=== PATIENT | female | born 2000 | race Asian ===

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

== ENCOUNTER 2022-11-06 13:56 | Emergency (ER) | payer OTHER, SELFPAY ==
[2022-11-06 13:58] VITALS: BP 134/93; PULSE 118; RESP 16; TEMP 37.1; O2SAT 100; BMI 17.9
--- NOTE | 2022-11-06 14:08 | EKG12_ITS ---
Test Reason : DIZZINESS Blood Pressure : / mmHG Vent. Rate : 110 BPM Atrial Rate : 110 BPM P-R Int : 180 ms QRS Dur : 084 ms QT Int : 310 ms P-R-T Axes : 085 087 077 degrees QTc Int : 419 ms Sinus tachycardia Possible Left atrial enlargement Borderline ECG Confirmed by DOMI THOMPSON ([id number]), deputy editor in chief DANIELA EDUARDO ([id number]) on 11/11/2022 7:44:45 AM Referred By: TL Confirmed By:DOMI THOMPSON
--- NOTE | 2022-11-06 14:09 | EX.ED.DYSGE1 ---
HPI History of Present Illness Chief Complaint: Dizziness Informant: patient Narrative Narrative: Referred in here for a wellness clinic for fast heart rate. Patient states released from her dorm from isolation for 5 days due to COVID. She was diagnosed for the first time however had symptoms 2 other times. She had weakness and fatigue and reported sneezing for 1 day. Denies cough denies vomiting or diarrhea. Denies urinary symptoms. She is on Concerta for the past year and states she has always had a high heart rate. Heart rate was 120s at the wellness clinic. She denies any shortness of breath or any exertional dyspnea. She denies any syncopal episodes. She reports there is decrease in smell with decreased appetite however she has been tolerating oral fluids. Denies any current bloody stools. Prior similar symptoms: Yes PFSH PFSH Medical History Bipolar disorder Generalized anxiety disorder Panic disorder PTSD (post-traumatic stress disorder) Social anxiety disorder Home Medications norethindrone acetate 1 mg-ethinyl estradiol 20 mcg tablet 1 ea PO DAILY 09/18/20 [History Last Taken Unknown] Ziprasidone Hcl [Geodon] 40 mg PO BID 10/03/20 [History Last Taken Unknown] mirtazapine 30 mg tablet (Remeron) 30 mg PO DAILY 12/14/20 [History Last Taken Unknown] buspirone 10 mg tablet 10 mg PO TID 12/29/20 [History Last Taken Unknown] lamotrigine 25 mg tablet (Lamictal) 50 mg PO QHS 02/27/21 [History Last Taken Unknown] Allergy/AdvReac Type Severity Reaction Status Date / Time No Known Allergies Allergy Verified 11/06/22 13:59 Family History Grandmother Diabetes Social History housing: other Smoking Status: Never smoker ROS ROS ED Constitutional Constitutional ED: Denies chills, fever(s) or sweats Eyes Eyes: Denies change in vision ENT ENT ED: Denies dysphagia or sore throat Cardiovascular Cardiovascular: Denies chest pain, leg edema, palpitations or racing heartbeat Respiratory/Chest Respiratory/Chest: Denies cough, dyspnea or dyspnea on exertion Gastrointestinal Gastrointestinal: Denies abdominal pain, diarrhea, nausea or vomiting Genitourinary Genitourinary ED: Denies dysuria, hematuria or urinary frequency Musculoskeletal Musculoskeletal: Denies back pain, extremity pain or neck pain Integumentary Denies rash or wounds Neurologic Neurologic: Denies headache(s), paresthesias or weakness EXAM Physical Exam Const Vital Signs: 11/06/22 13:58 Temperature 98.8 F Temperature Source Temporal Pulse Rate 118 H Respiratory Rate 16 Blood Pressure 134/93 H Blood Pressure Mean 106 Pulse Ox 100 Oxygen Delivery Method Room Air Positive well nourished and well developed General Appearance ED: well developed and NAD HEENT Reports moist mucous membranes normocephalic and atraumatic Eyes PERRL, EOMs intact bilaterally and conjunctivae normal General Eye ED: Yes normal appearance of both eyes Neck no lymphadenopathy and supple General: Negative for tenderness Chest Wall Chest: Negative for tenderness Resp normal respiratory effort and normal air movement Effort and Inspection: symmetric chest movement; Negative for respiratory distress Cardio regular rhythm and no murmurs Rate: tachycardic Peripheral Pulses: pulses 2+ throughout GI normal to inspection, nondistended, normoactive bowel sounds and non-tender Palpation: Negative for guarding or rebound tenderness present Back/Spine no CVA tenderness and no thoracic nor lumbar tenderness Extremity normal to inspection General Extremety ED: Negative for edema or tenderness General Extremity: Negative for edema Neuro oriented x3 and no sensory deficits noted Sensorium / Orientation: awake and alert Skin no rashes or lesions noted and no wounds MDM MDM MDM Narrative Medical decision making narrative: Interventions / MDM: Differential diagnosis: Dysrhythmia, sinus tachycardia Diagnosis considered but do not suspect: PE, however denies any dyspnea or exertional dyspnea pulse ox 100% on room air. My EKG interpretation: Sinus rate of 110, no ST or T wave changes. Imaging independently reviewed and interpreted by myself: N/A External documents reviewed: N/A Test considered but not ordered:N/A ED course: Patient tachycardic on arrival. Sinus rhythm confirmed by EKG. Patient with no dyspnea no exertional dyspnea pulse ox 100 % on room air, lower suspicion for PE. She reports persistent tachycardia at home she is on Concerta likely adding to this. No syncopal episodes no focal deficits. She is tolerating oral fluids. Patient reassured with outpatient follow-up. Return precautions were discussed with the patient. All questions were answered. Re-evaluation: stable Disposition discussed with patient/family/significant other: Patient Case discussed with consulting clinician: N/A Discharge Plan Triage Chief Complaint: Dizziness Other Complaint: Palpitations ED Provider: Ashwin Malloy Dx/Rx/DC Orders Clinical Impression: Sinus tachycardia, Post covid-19 condition, unspecified Instructions: Understanding Tachycardia Prescriptions: No Action norethindrone ac-eth estradiol 1 EACH tablet 1 ea PO DAILY Ziprasidone Hcl [Geodon] 60 MG capsule 40 mg PO BID mirtazapine [Remeron] 30 mg tablet 30 mg PO DAILY buspirone 10 mg tablet 10 mg PO TID Label Comments: Take 1 Tablet By Oral Route 2 time(s) per day lamotrigine [Lamictal] 25 mg Tablet 50 mg PO QHS Rx Instructions: increase to 100mg qhs in one week Primary Care Provider: Care Physician,No Primary Referrals: [facility] Doctor,Out of [Non-Staff] - Activity Restrictions/Additional Instructions: EKG sinus rhythm. Continue oral fluids for hydration. Monitor symptoms if worsening especially with exertional dyspnea return for reevaluation otherwise follow-up with your doctors. Disposition Disposition: Home, Self Care
== END 2022-11-06 14:44 | disposition home or self-care (01) ==
PROVIDERS: Emergency Provider Emergency Medicine; Visit Provider Emergency Medicine
DX: R00.0 Tachycardia, unspecified (principal); U09.9 Post COVID-19 condition, unspecified
CPT/HCPCS: 93005; 99282

== ENCOUNTER 2022-11-11 16:44 | Emergency (ER) | payer OTHER, SELFPAY ==
[2022-11-11 16:45] VITALS: BP 124/95; PULSE 122; RESP 18; TEMP 37; O2SAT 98
--- NOTE | 2022-11-11 18:00 | EKG12_ITS ---
Test Reason : CP Blood Pressure : / mmHG Vent. Rate : 118 BPM Atrial Rate : 118 BPM P-R Int : 172 ms QRS Dur : 078 ms QT Int : 312 ms P-R-T Axes : 086 081 076 degrees QTc Int : 437 ms Sinus tachycardia Otherwise normal ECG Confirmed by JUVENTINO DOMINGUEZ, EARLE ([id number]), digital editor DANIELA EDUARDO ([id number]) on 11/17/2022 9:51:24 AM Referred By: LIZZ Confirmed By:EALRE JAUREGUI MD
[2022-11-11 18:23] VITALS: BMI 16.8
--- NOTE | 2022-11-11 18:43 | EKG12_ITS ---
Test Reason : CP REPEAT Blood Pressure : / mmHG Vent. Rate : 105 BPM Atrial Rate : 105 BPM P-R Int : 172 ms QRS Dur : 086 ms QT Int : 328 ms P-R-T Axes : 078 074 075 degrees QTc Int : 433 ms Sinus tachycardia Otherwise normal ECG Confirmed by EARLE JAUREGUI MD ([id number]), assignment editor DANIELA EDUARDO ([id number]) on 11/17/2022 9:51:52 AM Referred By: LIZZ Confirmed By:EARLE JAUREGUI MD
--- NOTE | 2022-11-11 18:44 | ED.VIS.CHEST ---
HPI History of Present Illness Chief Complaint: Chest Pain Informant: patient Narrative Narrative: Patient presents with palpitations and some dyspnea. Patient states that she has no history of heart disease but her heart rate is always in the 120s. She states every time she goes to her primary doctor her heart is in the 120s but she is asymptomatic. Patient did have COVID on the seventh of this month. She had sneezing body aches and decreased energy with that but those symptoms seem to get better. She was not having breathing problems. Now for the past week or week and a half she notes that when she walks around or gets active her heart rate races more than it normally does and she feels more tired and a little bit short of breath. She is not coughing. No abdominal pain. No muscle aches. No sputum. No hemoptysis. No leg pain or swelling. Patient is also on control. She also had a trip to [place] in September and a trip to [facility] in June. There is no personal or family history of DVT or PE though. PFSH [facility] Medical History Bipolar disorder Generalized anxiety disorder Panic disorder PTSD (post-traumatic stress disorder) Social anxiety disorder Home Medications norethindrone acetate 1 mg-ethinyl estradiol 20 mcg tablet 1 ea PO DAILY 09/18/20 [History Last Taken Unknown] Ziprasidone Hcl [Geodon] 40 mg PO BID 10/03/20 [History Last Taken Unknown] mirtazapine 30 mg tablet (Remeron) 30 mg PO DAILY 12/14/20 [History Last Taken Unknown] buspirone 10 mg tablet 10 mg PO TID 12/29/20 [History Last Taken Unknown] lamotrigine 25 mg tablet (Lamictal) 50 mg PO QHS 02/27/21 [History Last Taken Unknown] Allergy/AdvReac Type Severity Reaction Status Date / Time No Known Allergies Allergy Verified 11/11/22 16:46 Family History Grandmother Diabetes Social History housing: other Smoking Status: Never smoker ROS ROS ED Constitutional Constitutional ED: Denies chills or fever(s) Eyes Eyes: Denies blurry vision or change in vision ENT ENT ED: Denies rhinorrhea or sore throat Cardiovascular Cardiovascular: Reports as per HPI, palpitations and racing heartbeat Respiratory/Chest Respiratory/Chest: Reports dyspnea; Denies cough Gastrointestinal Gastrointestinal: Denies nausea or vomiting Musculoskeletal Musculoskeletal: Denies back pain, myalgias or neck pain Integumentary Denies rash Neurologic Neurologic: Denies headache(s) Psychiatric Psychiatric: Reports anxiety Endocrine Endocrinology: Denies polydipsia or polyuria Hematologic/Lymphatic Hematologic/Lymphatic: Denies easy bleeding or easy bruising Allergic/Immunologic Allergic/Immunologic ED: Denies urticaria EXAM Physical Exam Narrative Exam Narrative: CONSTITUTIONAL: Patient is nontoxic in appearance. The patient looks comfortable. Work of breathing looks normal. I could not initially see her because she needed to have a drink of water before I could speak with her. She is better now that she had water. HEENT: No notable trauma. Mucous membranes still moist. No sinus tenderness. No indication of pain with swallowing. EYES: No conjunctival injection. No proptosis. NECK:No JVD. No stridor. CARDIOVASCULAR: Mildly tachycardic rate at about 105?110. Regular rhythm. No notable murmur. No JVD. RESPIRATORY: No respiratory distress. Breathing is unlabored. No wheezes. No rhonchi. No rales. No pain with a deep breath. No chest wall tenderness. GASTROINTESTINAL: Not distended. Bowel sounds are normal. No tenderness. No guarding. No rebound. No palpable mass. No bruit is heard. GENITOURINARY: No tenderness over the bladder. No CVA tenderness. MUSCULOSKELETAL: Atraumatic. No peripheral edema. No cord. No tenderness along the deep venous system. No asymmetry. No distended veins. NEUROLOGICAL: Patient is alert and appropriate. No focal deficit noted. SKIN: No noted rashes. No diaphoresis. PSYCHIATRIC: Patient is calm. Mood is appropriate. Const Vital Signs: 11/11/22 16:45 11/11/22 19:00 11/11/22 20:00 Temperature 98.6 F Temperature Source Temporal Pulse Rate 122 H Respiratory Rate 18 14 Blood Pressure 124/95 H 116/87 H Blood Pressure Mean 104 96 Pulse Ox 98 100 Oxygen Delivery Method Room Air Room Air Room Air MDM MDM MDM Narrative Medical decision making narrative: My independent interpretation the patient's single view AP chest x-ray shows no acute disease. Patient CBC is normal Patient's electrolytes show no marked abnormalities Troponin is unmeasurable D-dimer was elevated. With elevated D-dimers and her risk factors, we did do CTA of the chest. This came back negative. No PE or dissection. I think patient is appropriate for follow-up. Her heart rate is 104 while I am in the room. She states it is always fast. I will refer her to cardiology as she requested. Her primary physician wants her to get in also. We discussed reasons to return. I do not see any indication for antibiotics or other therapy at this time. Her symptoms might be related to recent COVID. Lab Data Attestation: I reviewed the patient's lab results. Labs: Laboratory Results - last 24 hr 11/11/22 11/11/22 11/11/22 18:56 18:56 18:56 WBC 9.5 RBC 5.14 Hgb 14.4 Hct 44.2 MCV 86.0 MCH 28.0 MCHC 32.6 RDW Std Deviation 40.6 RDW Coeff of Jack 13.0 Plt Count 346 MPV 9.8 Immature Gran % (Auto) 0.300 Neut % (Auto) 62.5 Lymph % (Auto) 30.0 Eagle % (Auto) 4.7 Eos % (Auto) 1.9 Baso % (Auto) 0.6 Absolute Neuts (auto) 6.0 Absolute Lymphs (auto) 2.86 Nucleated RBC % 0 D-Dimer Quant (PE/DVT) 1.36 H* Sodium 138 Potassium 3.5 Chloride 108 H Carbon Dioxide 25.0 Anion Gap 5 BUN 11 Creatinine 0.63 Estim Creat Clear Calc 103.02 Est GFR (MDRD) Af Amer 155 Est GFR (MDRD) Non-Af 128 BUN/Creatinine Ratio 17.6 Glucose 81 Calcium 9.5 Troponin I High Sens < 3 L Serum , Qual 11/11/22 18:56 WBC RBC Hgb Hct MCV MCH MCHC RDW Std Deviation RDW Coeff of Jack Plt Count MPV Immature Gran % (Auto) Neut % (Auto) Lymph % (Auto) Eagle % (Auto) Eos % (Auto) Baso % (Auto) Absolute Neuts (auto) Absolute Lymphs (auto) Nucleated RBC % D-Dimer Quant (PE/DVT) Sodium Potassium Chloride Carbon Dioxide Anion Gap BUN Creatinine Estim Creat Clear Calc Est GFR (MDRD) Af Amer Est GFR (MDRD) Non-Af BUN/Creatinine Ratio Glucose Calcium Troponin I High Sens Serum , Qual NEGATIVE Radiography Diagnostic Testing: Clinical Impression(s) from Imaging Studies Chest X-Ray 11/11/22 19:00 IMPRESSION: No acute cardiopulmonary disease. Electronically Signed: Mack Powell DO at 19:14 EDT Reading Location ID and State: [address] [place] [address] Tel [phone], Service support , Chest CTA 11/11/22 19:35 IMPRESSION: Normal CTA chest examination, without a demonstrated pulmonary embolism or arterial dissection. AIDOC was utilized to assist in identifying pertinent positive findings in this case. Electronically Signed: Mack Powell at 20:33 EDT Reading Location ID and State: [address] [place] [address] Tel [phone], Service support , EKG Initial EKG: Comments: My independent interpretation the patient's EKG done for palpitations shows sinus rhythm with tachycardic rate at 105. No ectopy is noted. No acute ST elevation or depression. No preexcitation. ID interval, QRS duration and QTc are normal. Discharge Plan Triage Chief Complaint: Chest Pain ED Provider: Juan Luis Ayala Dx/Rx/DC Orders Clinical Impression: Heart palpitations, Sinus tachycardia Instructions: ED Palpitations Prescriptions: No Action norethindrone ac-eth estradiol 1 EACH tablet 1 ea PO DAILY Ziprasidone Hcl [Geodon] 60 MG capsule 40 mg PO BID mirtazapine [Remeron] 30 mg tablet 30 mg PO DAILY buspirone 10 mg tablet 10 mg PO TID Label Comments: Take 1 Tablet By Oral Route 2 time(s) per day lamotrigine [Lamictal] 25 mg Tablet 50 mg PO QHS Rx Instructions: increase to 100mg qhs in one week Primary Care Provider: Care Physician,No Primary Referrals: Randy Schwarz MD [Med Staff - Active Staff] - As soon as possible Care Physician,No Primary [Primary Care Provider] - Activity Restrictions/Additional Instructions: Follow-up with your primary physician Disposition Disposition: Home, Self Care
--- NOTE | 2022-11-11 19:00 | RAD_ITS ---
STUDY: X-RAY CHEST REASON FOR EXAM: Female, 22 years old. Intermittent chest pain for several days. TECHNIQUE: Single AP portable view of the chest. COMPARISON: None. FINDINGS: The lungs are clear and expanded. There is no demonstrated pleural abnormality. Normal size heart. Normal mediastinum and yael. Normal visualized pulmonary arteries. Normal visualized aortic arch and descending thoracic aorta. Normal visualized thoracic spine. Normal visualized ribs, clavicles, and shoulders. There is no demonstrated abnormality of the visualized soft tissue structures of the upper abdomen. RAD/Chest 1 View (Portable) IMPRESSION: No acute cardiopulmonary disease. Electronically Signed: Mack Powell DO at 19:14 EDT ,
[2022-11-11 19:11] LABS: Absolute Lymphocyte Count 2.86 X10^3/uL (0.83-4.51); Basophil# 0.06 X10^3/uL; Basophil% 0.6 % (0-1); Eosinophil# 0.18 X10^3/uL; Eosinophils% 1.9 % (0-5); Hematocrit 44.2 % (37-47); Hemoglobin 14.4 g/dL (12.0-15.0); Lymphocyte # 2.86 X10^3/ul (0.83-4.51); Mean Corp Hgb Conc 32.6 g/dL (32-36); Mean Platelet Vol. 9.8 fl (6.2-12.0); Monocyte# 0.45 X10^3/uL; Monocyte% 4.7 % (0-10); NRBC Flagged by Analyzer 0 % (0-5); Neutrophil # 5.96 X10^3/uL (2.7-7.7); Neutrophil % 62.5 % (47-70); Platelet Count 346 K/mm3 (150-450); RBC Distribution Width SD 40.6 fl (35.1-43.9); Red Blood Count 5.14 M/mm3 (4.2-5.4); White Blood Count 9.5 K/mm3 (4.4-11.0)
[2022-11-11 19:27] LABS: Internal QC Validated? YES +Cl - CLEAR BKGD; Pregnancy, Serum, hCG Quali. NEGATIVE Negative
[2022-11-11 19:32] LABS: D-Dimer Quantitative (DVT/PE) 1.36 FEU/ug/m (0.27-0.49)
[2022-11-11 19:35] LABS: Anion Gap 5 (5-15); BUN 11 mg/dL (7-18); BUN/Creat Ratio 17.6 RATIO (10-20); Calcium,Total 9.5 mg/dL (8.5-10.1); Chloride 108 mmol/L (98-107); Creatinine, Serum 0.63 mg/dL (0.55-1.02); EST Glomerular Filtration Rate 128 mL/min (>60); Est Glom Filt Rate - Afr Amer 155 mL/min (>60); Estimated Creatinine Clearance 103.02 ml/min; Glucose 81 mg/dL (74-106); Potassium 3.5 mmol/L (3.5-5.1); Sodium Level 138 mmol/L (136-145); Troponin-I HS < 3 pg/mL (3.0-54.0)
--- NOTE | 2022-11-11 19:35 | CT_ITS ---
STUDY: CTA CHEST REASON FOR EXAM: Female, 22 years old. Positive d-dimer. Chest pain. RADIATION DOSAGE (If Supplied By Facility): CTDIvol = ( 4.71 ) mGy, DLP = ( 119.24 ) mGycm TECHNIQUE: The examination was performed with the intravenous administration of IV 75mL [id number]-370. Post-processing of the angiographic images was performed, with multiplanar reformation and 3D reconstruction. Individualized dose optimization techniques were used for this CT. COMPARISON: Chest, November 11, 2022. FINDINGS: Normal enhancement of the main pulmonary artery and right and left pulmonary arteries. Normal enhancement of the bilateral peripheral pulmonary arteries. There is no demonstrated pulmonary embolism. Normal thoracic aorta and visualized great vessels. There is no demonstrated aortic dissection. Normal heart and pericardium. No coronary artery calcifications. Normal mediastinum. Normal hilar regions. Normal visualized trachea and bronchi. The lungs are well expanded. Normal pulmonary parenchyma. Normal pleura. Normal chest wall structures. Normal osseous structures. Normal visualized upper abdomen. CT/CTA Chest W/WO Contrast IMPRESSION: Normal CTA chest examination, without a demonstrated pulmonary embolism or arterial dissection. AIDOC was utilized to assist in identifying pertinent positive findings in this case. Electronically Signed: Mack Powell DO at 20:33 EDT ,
[2022-11-11 20:00] VITALS: BP 116/87; RESP 14; O2SAT 100
[2022-11-11 21:11] VITALS: BP 112/85
== END 2022-11-11 21:12 | disposition home or self-care (01) ==
PROVIDERS: Emergency Provider Emergency Medicine; Visit Provider Emergency Medicine
DX: R00.2 Palpitations (principal); R00.0 Tachycardia, unspecified; R06.00 Dyspnea, unspecified; Z86.16 Personal history of COVID-19
CPT/HCPCS: 71045; 71275; 80048; 84484; 84703; 85025; 85379; 93005; 99284; Q9967; A4216

== ENCOUNTER 2022-11-16 18:15 | Emergency (ER) | payer OTHER, SELFPAY ==
[2022-11-16 18:16] VITALS: BP 134/85; PULSE 130; RESP 20; TEMP 36.1; O2SAT 100; BMI 18.3
--- NOTE | 2022-11-16 18:45 | ED.VIS.CHEST ---
HPI History of Present Illness Chief Complaint: Other, Pain/Inj Detail of Chief Complaint: Elevated heart rate. Informant: patient Onset/Context/Timing Onset: Weeks Associated Symptoms: Positive for Palpitations; Negative for Nausea, Vomiting, Diaphoresis, Dyspnea, Cough, Fever, Lightheadedness or Acid Reflux Narrative Narrative: -year-old female who states that several weeks ago had COVID. Did well but since that time has had fatigue and intermittent palpitations accelerated heart rate. She was seen in this emergency department around 5 days ago and extensive work-up including a CTA of her chest all of which was basically unremarkable. She was doing well. And today she started having palpitations again and return to the emergency department. She denies any nausea, vomiting or diarrhea. No recent weight change or hair loss. No history of thyroid disorder. Prior Similar Symptoms: Yes Recent Illness/Hospitalization: No CVD Risk Factors: Negative for Hypertension, Diabetes, Hypercholesterolemia, Family History 1' </=55 or Smoking PE Risk Factors: Negative for Recent Travel/Surgery, Recent Immobilization, Prior DVT or PE, Cancer or OCP + Smoking + >/=35 TAD Risk Factors: Negative for Marfan's Syndrome PFSH PFS Medical History Bipolar disorder Generalized anxiety disorder Panic disorder PTSD (post-traumatic stress disorder) Social anxiety disorder Home Medications norethindrone acetate 1 mg-ethinyl estradiol 20 mcg tablet 1 ea PO DAILY 09/18/20 [History Last Taken Unknown] Ziprasidone Hcl [Geodon] 40 mg PO BID 10/03/20 [History Last Taken Unknown] mirtazapine 30 mg tablet (Remeron) 30 mg PO DAILY 12/14/20 [History Last Taken Unknown] buspirone 10 mg tablet 10 mg PO TID 12/29/20 [History Last Taken Unknown] lamotrigine 25 mg tablet (Lamictal) 50 mg PO QHS 02/27/21 [History Last Taken Unknown] Allergy/AdvReac Type Severity Reaction Status Date / Time No Known Allergies Allergy Verified 11/16/22 18:17 Family History Grandmother Diabetes Social History housing: other Smoking Status: Never smoker ROS ROS ED ROS Narrative Palpitations. Fatigue. Review of Systems ROS Unobtainable: Denies due to encephalopathy Constitutional Constitutional ED: Denies chills or fever(s) Eyes Eyes: Reports none ENT ENT ED: Denies ear pain Cardiovascular Cardiovascular: Reports as per HPI, palpitations and racing heartbeat Respiratory/Chest Respiratory/Chest: Denies cough Gastrointestinal Gastrointestinal: Denies abdominal pain Genitourinary Genitourinary ED: Denies dysuria Musculoskeletal Musculoskeletal: Denies arthralgias Integumentary Denies abscess Neurologic Neurologic: Denies headache(s) Psychiatric Psychiatric: Denies anxiety or depression Endocrine Endocrinology: Denies cold intolerance Hematologic/Lymphatic Hematologic/Lymphatic: Denies easy bleeding Allergic/Immunologic Allergic/Immunologic ED: Denies mouth swelling EXAM Physical Exam Narrative Exam Narrative: 22-year-old female no acute distress. Vital signs stable afebrile. Does not look septic toxic or in any distress. Mildly anxious. H EENT exam unremarkable.Neck nontender no lymphadenopathy. No thyromegaly. Lungs clear to auscultation. Heart tachycardic rate about 120 no murmur. Chest wall nontender. Abdomen soft nontender. Moving all 4 extremities. Calves are nontender without edema or cords. Back nontender. Neurologically she is awake alert with no focal motor deficits. Const Vital Signs: 11/16/22 18:16 Temperature 97 F L Temperature Source Temporal Pulse Rate 130 H Respiratory Rate 20 H Blood Pressure 134/85 H Blood Pressure Mean 101 Pulse Ox 100 Oxygen Delivery Method Room Air Positive well nourished and well developed; Negative for obese, cachectic, contractures or unkempt General Appearance ED: well developed and NAD; Negative for unkempt, cachectic, contractures or pallor Nutritional Appearance: Negative for cachectic or obese HEENT Reports moist mucous membranes; Denies dry mucous membranes normocephalic and atraumatic; Negative for trauma or tenderness Mouth ED: No dry mucous membranes Mouth: No dry mucous membranes Eyes PERRL and EOMs intact bilaterally General Eye ED: Negative for pale conjunctiva, scleral icterus or other Neck no lymphadenopathy, supple and no JVD General: Negative for tenderness Chest Wall inspection of chest normal and palpation of chest normal Chest: Negative for tenderness Resp normal respiratory effort and clear to auscultation bilaterally Effort and Inspection: Negative for respiratory distress Auscultation: Negative for rales, rhonchi or wheezes Cardio regular rhythm, S1 normal heart sound, S2 normal heart sound and no murmurs; Negative for regular rate Rate: tachycardic Rhythm: Negative for abnormal rhythm Peripheral Pulses: pulses 2+ throughout GI normal to inspection, nondistended, normoactive bowel sounds, soft to palpation, non-tender, non-distended and no masses Back/Spine no CVA tenderness and no thoracic nor lumbar tenderness General Back: Negative for CVA tenderness Cervical Spine: Negative for cervical spine tenderness Extremity normal to inspection General Extremety ED: Negative for edema, pulses abnormal or tenderness General Extremity: Negative for edema or pulses abnormal Neuro oriented x3, CN's II-XII intact bilaterally and no sensory deficits noted Sensorium / Orientation: awake, alert, oriented to person, oriented to place and oriented to time; Negative for confused or lethargic Motor Exam: strength 5/5 throughout; Negative for general weakness or strength abnormal Psych mental status grossly normal Appearance: Negative for unkempt Attitude: No agitated Mood & Affect: Negative for depressed or tearful Skin no rashes or lesions noted and no wounds General Skin Exam: Negative for jaundice or pallor Rashes: No rashes noted Trauma: Negative for abrasion, laceration or puncture MDM MDM MDM Narrative Medical decision making narrative: 22-year-old female who is been seen for this before. Extensive work-up including a negative CTA. Basically had unremarkable labs. She is a benign exam other than mild tachycardia. This could be from anxiety versus other etiologies. She said her primary care physician who is with the [facility], Dr. Frances lopez, is working to get her an echocardiogram. She clinically looks well. I do not think we need to repeat the entire work-up that was done 5 days ago. I will recheck an EKG. She states they have done recent thyroid test in the office that were negative. Repeat exam patient is doing well at 7:14 PM. She will be discharged home with outpatient follow-up. She is scheduled to see her primary care physician and they are working on getting her an echocardiogram. She had extensive work-up 5 days ago I do not feel it needs to be repeated. This could also be secondary to anxiety. History & Record Review Discussion w/independent historian: Patient Additional record(s) reviewed:: Prior outpatient record, Prior ED visit and Prior labs Lab Data Attestation: I reviewed the patient's lab results. Lab results narrative: I reviewed all of her labs and imaging from 5 days ago. Basically unremarkable. Rhythm Strip Rhythm Strip: Sinus Tach Rate: 104 Ectopy: None EKG Initial EKG: Attestation: I personally reviewed and interpreted this EKG as follows: Interpretation: No Acute Injury Pattern and Sinus Tachycardia Comments: Sinus tachycardia rate of 104. No acute signs of MA, ischemia or dysrhythmia and unchanged from prior EKG from 5 days ago where she had a heart rate of 105. Prior EKG tracings: available for review Prior: Unchanged Discharge Plan Triage Chief Complaint: Other, Pain/Inj ED Provider: Sina Suresh Dx/Rx/DC Orders Clinical Impression: Heart palpitations Instructions: ED Palpitations Prescriptions: No Action norethindrone ac-eth estradiol 1 EACH tablet 1 ea PO DAILY Ziprasidone Hcl [Geodon] 60 MG capsule 40 mg PO BID mirtazapine [Remeron] 30 mg tablet 30 mg PO DAILY buspirone 10 mg tablet 10 mg PO TID Label Comments: Take 1 Tablet By Oral Route 2 time(s) per day lamotrigine [Lamictal] 25 mg Tablet 50 mg PO QHS Rx Instructions: increase to 100mg qhs in one week Primary Care Provider: DEANNA MEJIA Referrals: Marga Lopez MD [Med Staff - Fabric Machine Operator] - As soon as possible Care Physician,No Primary [Non-Staff] - Activity Restrictions/Additional Instructions: Follow-up with your primary care provider for further evaluation and possible echocardiogram. Disposition Disposition: Home, Self Care
== END 2022-11-16 19:22 | disposition home or self-care (01) ==
PROVIDERS: Emergency Provider Emergency Medicine; PCP Nurse Practitioner; Visit Provider Emergency Medicine
DX: R00.2 Palpitations (principal); Z86.16 Personal history of COVID-19
CPT/HCPCS: 93005; 99282

== ENCOUNTER 2024-03-11 08:18 | Emergency (ER) | payer SELFPAY ==
[2024-03-11 08:18] VITALS: BP 130/99; PULSE 99; RESP 22; TEMP 36.2; O2SAT 98; BMI 20.9
--- NOTE | 2024-03-11 08:29 | EKG12_ITS ---
Test Reason : CHEST HEAVINESS Blood Pressure : / mmHG Vent. Rate : 101 BPM Atrial Rate : 101 BPM P-R Int : 186 ms QRS Dur : 084 ms QT Int : 314 ms P-R-T Axes : 058 063 059 degrees QTc Int : 407 ms Sinus tachycardia Otherwise normal ECG Confirmed by Yeison Espinosa ([id number]), editorial manager DANIELA EDUARDO ([id number]) on 03/14/2024 9:17:51 AM Referred By: Confirmed By:Yeison Espinosa
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
[2024-03-11 09:49] LABS: Absolute Lymphocyte Count 2.03 X10^3/uL (0.83-4.51); Absolute Neutrophil Count 2.9 X10^3/uL (2.0-7.7); Basophil# 0.04 X10^3/uL; Basophil% 0.7 % (0-1); Eosinophil# 0.18 X10^3/uL; Eosinophils% 3.3 % (0-5); Hematocrit 40.5 % (37-47); Hemoglobin 12.9 g/dL (12.0-15.0); Lymphocyte # 2.03 X10^3/ul (0.83-4.51); Mean Corp Hgb Conc 31.9 g/dL (32-36); Mean Corpuscular Hgb 27.8 pg (27.0-32.0); Mean Corpuscular Volume 87.3 fL (81-99); Mean Platelet Vol. 10.6 fl (6.2-12.0); Monocyte# 0.37 X10^3/uL; Monocyte% 6.7 % (0-10); NRBC Flagged by Analyzer 0 % (0-5); Neutrophil # 2.86 X10^3/uL (2.7-7.7); Neutrophil % 52.1 % (47-70); Platelet Count 324 K/mm3 (150-450); RBC Distribution Width CV 13.5 % (11.6-14.6); RBC Distribution Width SD 42.7 fl (35.1-43.9); Red Blood Count 4.64 M/mm3 (4.2-5.4); White Blood Count 5.5 K/mm3 (4.4-11.0)
[2024-03-11 10:04] LABS: Anion Gap 6 (5-15); BUN 8 mg/dL (7-18); BUN/Creat Ratio 11.2 RATIO (10-20); Calcium,Total 9.3 mg/dL (8.5-10.1); Chloride 109 mmol/L (98-107); Creatinine, Serum 0.71 mg/dL (0.55-1.02); EST Glomerular Filtration Rate 109 mL/min (>60); Est Glom Filt Rate - Afr Amer 132 mL/min (>60); Estimated Creatinine Clearance 112.78 ml/min; Glucose 94 mg/dL (74-106); Potassium 4.1 mmol/L (3.5-5.1); Sodium Level 140 mmol/L (136-145); Troponin-I HS (w/2H Reflex) < 3 pg/mL (3.0-54.0)
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
[2024-03-11 10:51] VITALS: BP 110/76; PULSE 91; RESP 18; O2SAT 97
[2024-03-11 11:42] LABS: Reflex Troponin-HS? (from REC) Y
[2024-03-11 12:00] VITALS: BP 102/72; PULSE 82; RESP 16; O2SAT 91
[2024-03-11 12:24] LABS: Troponin-I HS < 3 pg/mL (3.0-54.0)
[2024-03-11 13:12] VITALS: BP 107/72; PULSE 68; RESP 16; TEMP 36.7; O2SAT 99
== END 2024-03-11 13:17 | disposition home or self-care (01) ==
PROVIDERS: Emergency Provider Emergency Medicine; PCP Family Medicine; Visit Provider Emergency Medicine
DX: S80.11XA Contusion of right lower leg, initial encounter (principal); R07.9 Chest pain, unspecified; V19.9XXA Pedal cyclist (driver) (passenger) injured in unspecified traffic accident, initial encounter; Z79.3 Long term (current) use of hormonal contraceptives; S80.12XA Contusion of left lower leg, initial encounter; S09.90XA Unspecified injury of head, initial encounter; S80.811A Abrasion, right lower leg, initial encounter; S80.812A Abrasion, left lower leg, initial encounter
CPT/HCPCS: 71046; 80048; 84484; 85025; 93005; 99283; A4216